=== PATIENT | female | born 1955 | race American Indian/Alaskan Native ===

== ENCOUNTER 2020-02-02 09:37 | Emergency (ER) | payer OTHER ==
[2020-02-02] MEDS ORDERED: ASPIRIN 325 MG TAB PO ONE (09:58)
[2020-02-02 10:22] LABS: Basophils # (Auto) 0.2 K/mm3 (0.0-0.1); Basophils % (Auto) 2.4 % (0.0-1.8); Eosinophils # (Auto) 0.2 K/mm3 (0.0-0.4); Eosinophils % (Auto) 2.1 % (0.0-4.3); Hematocrit 36.9 % (30.3-42.9); Hemoglobin 12.3 gm/dl (10.1-14.3); Lymphocytes # (Auto) 1.7 K/mm3 (1.2-5.4); Lymphocytes % (Auto) 22.4 % (13.4-35.0); Mean Corpuscular HGB Conc 33 % (30-34); Mean Corpuscular Volume 74 fl (79-97); Monocytes # (Auto) 0.7 K/mm3 (0.0-0.8); Monocytes % (Auto) 9.6 % (0.0-7.3); Platelet Count 445 K/mm3 (140-440); Red Blood Count 4.99 M/mm3 (3.65-5.03); Red Cell Distribution Width 16.5 % (13.2-15.2)
[2020-02-02 10:44] LABS: BUN/Creatinine Ratio 16; Blood Urea Nitrogen 13 mg/dL (7-17); Calcium 8.7 mg/dL (8.4-10.2); Hemolysis Index 13
[2020-02-02] MEDS ORDERED: amLODIPine 5 MG TAB PO ONE (10:46)
[2020-02-02] MEDS ORDERED: LISINOPRIL 10 MG TAB PO ONE (10:50)
[2020-02-02] MEDS ORDERED: hydroCHLOROthiazide 25 MG TAB PO ONE (10:50)
--- NOTE | 2020-02-02 10:54 | Emergency Department Report ---
ED General Adult HPI - General Chief complaint: Chest Pain Stated complaint: CHEST PAIN, BP HIGH Time Seen by Provider: 02/02/20 10:41 Source: patient Mode of arrival: Ambulatory Limitations: No Limitations - History of Present Illness Initial comments: CC: " My blood pressure has been so high since I got here." HPI: This is a 64-year-old female history of hypertension who recently moved from [place] over the past weekend. She is concerned that her blood pressure has been elevated. She has been taking her readings every hour. Normal range 120-150 systolic. Today 180s 190s. She has been eating out. She has a high salt diet. She was recently evaluated by new primary care physician just prior to her move from [place]. She was prescribed amlodipine 5 mg once a day. She denies chest pain headache tingling blurry vision. She denies paresthesia or paralysis. She had intermittent nondescript chest pain which is not a concern to her. She desires for evaluation of PET scan results. PET scan was ordered to evaluate lung nodule. -: Gradual, days(s) (2) Consistency: now resolved Improves with: none Worsens with: none Associated Symptoms: denies other symptoms - Related Data Previous Rx's Medication Instructions Recorded Last Taken Type amLODIPine 5 mg PO DAILY 90 Days #90 tab 02/02/20 Unknown Rx hydroCHLOROthiazide [HCTZ] 25 mg PO QDAY 90 Days #90 tablet 02/02/20 Unknown Rx Allergies Allergy/AdvReac Type Severity Reaction Status Date / Time No Known Allergies Allergy Verified 02/02/20 09:58 ED Review of Systems ROS: Stated complaint: CHEST PAIN, BP HIGH Other details as noted in HPI Comment: All other systems reviewed and negative Constitutional: denies: fever, malaise Respiratory: denies: cough, shortness of breath Cardiovascular: chest pain ED Past Medical Hx - Past Medical History Previous Medical History?: Yes Hx Hypertension: Yes - Social History Smoking Status: Never Smoker Substance Use Type: None - Medications Home Medications: Home Medications Medication Instructions Recorded Confirmed Last Taken Type amLODIPine 5 mg PO DAILY 90 Days #90 tab 02/02/20 Unknown Rx hydroCHLOROthiazide [HCTZ] 25 mg PO QDAY 90 Days #90 tablet 02/02/20 Unknown Rx ED Physical Exam - General Limitations: No Limitations General appearance: alert, in no apparent distress - Head Head exam: Present: atraumatic, normocephalic - Eye Eye exam: Present: normal appearance - ENT ENT exam: Present: mucous membranes moist - Neck Neck exam: Present: normal inspection - Respiratory Respiratory exam: Present: normal lung sounds bilaterally. Absent: respiratory distress - Cardiovascular Cardiovascular Exam: Present: regular rate, normal rhythm. Absent: systolic murmur, diastolic murmur, rubs, gallop - GI/Abdominal GI/Abdominal exam: Present: soft, normal bowel sounds - Extremities Exam Extremities exam: Present: normal inspection - Back Exam Back exam: Present: normal inspection - Neurological Exam Neurological exam: Present: alert, oriented X3 - Psychiatric Psychiatric exam: Present: normal affect, normal mood - Skin Skin exam: Present: warm, dry, intact, normal color. Absent: rash ED Course Vital Signs 02/02/20 09:48 Temperature 97.9 F Pulse Rate 65 Respiratory 16 Rate Blood Pressure 191/63 O2 Sat by Pulse 98 Oximetry ED Medical Decision Making - Lab Data Result diagrams: 02/02/20 10:03 02/02/20 10:03 Laboratory Results - last 24 hr 02/02/20 02/02/20 10:03 10:03 WBC 7.5 RBC 4.99 Hgb 12.3 Hct 36.9 MCV 74 L MCH 25 L MCHC 33 RDW 16.5 H Plt Count 445 H Lymph % (Auto) 22.4 Kay % (Auto) 9.6 H Eos % (Auto) 2.1 Baso % (Auto) 2.4 H Lymph # 1.7 Kay # 0.7 Eos # 0.2 Baso # 0.2 H Seg Neutrophils % 63.5 Seg Neutrophils # 4.8 Sodium 142 Potassium 4.0 Chloride 106.8 Carbon Dioxide 20 L Anion Gap 19 BUN 13 Creatinine 0.8 Estimated GFR > 60 BUN/Creatinine Ratio 16 Glucose 95 Calcium 8.7 Troponin T < 0.010 - EKG Data EKG shows normal: sinus rhythm, axis, intervals, QRS complexes, ST-T waves Rate: bradycardia - EKG Data Interpretation: LVH 02/02/20 10:49 EKG obtained 0959 Sinus bradycardia rate 45 bpm normal axis normal intervals no ST-T signs of ischemia positive LVH - Radiology Data Radiology results: report reviewed, image reviewed Chest radiograph: No acute findings - Medical Decision Making 1. Hypertensive urgency without evidence of endorgan damage: Prescribed amlodipine and hydrochlorothiazide referred to outpatient physician repeat blood pressure 149/86 without treatment. Her wrist cuff did not correspond to this finding. She now understands of the risk of is highly inaccurate. 2. Patient has several primary care concerns. PET scan revealed to be negative for metabolic activity. She was given reassurance. Referred to outpatient physician. Critical care attestation.: If time is entered above; I have spent that time in minutes in the direct care of this critically ill patient, excluding procedure time. ED Disposition Clinical Impression: Hypertensive urgency Disposition: DC-01 TO HOME OR SELFCARE Is pt being admited?: No Does the pt Need Aspirin: No Condition: Stable Instructions: Hypertension (ED) Prescriptions: amLODIPine 5 mg PO DAILY 90 Days #90 tab hydroCHLOROthiazide [HCTZ] 25 mg PO QDAY 90 Days #90 tablet Referrals: ELIANA CAZARES MD [Staff Physician] - 3-5 Days
--- NOTE | 2020-02-02 11:08 | XRay Report ---
CHEST 1 VIEW 02/02/2020 10:02 AM INDICATION / CLINICAL INFORMATION: Chest Pain. COMPARISON: None available. FINDINGS: SUPPORT DEVICES: None. HEART / MEDIASTINUM: No significant abnormality. LUNGS / PLEURA: No significant pulmonary or pleural abnormality. No pneumothorax. ADDITIONAL FINDINGS: No significant additional findings. IMPRESSION: 1. No acute abnormality of the chest. Signer Name: Chalo Butler MD Signed: 02/02/2020 11:04 AM Workstation Name: [id number]
[2020-02-02 11:23] VITALS: BP 145/60
== END 2020-02-02 11:23 | disposition home or self-care (01) ==
LOC: ED 09:37
DX: I16.0 Hypertensive urgency (principal); Z79.899 Other long term (current) drug therapy
CPT/HCPCS: 36415; 71045; 80048; 84484; 85025; 93005

== ENCOUNTER 2020-03-17 09:35 | Outpatient (CLI) | payer OTHER ==
--- NOTE | 2020-03-17 11:23 | Mammography Report ---
DIGITAL SCREENING MAMMOGRAM WITH CAD, 03/17/2020 INDICATION: Routine screening mammography. TECHNIQUE: Digital bilateral 2D mammography was obtained in the craniocaudal and mediolateral obliq ue projections. This examination was interpreted with the benefit of Computer-Aided Detection analysi s. COMPARISON: None available. FINDINGS: Breast Density: There are scattered areas of fibroglandular density. 2 nodular densities of uncertain significance are seen in the middle depth, upper outer quadrant of t he right breast measuring up to 6 mm. On the left, there is an indeterminate nodular density located in the 6:00 position, anterior depth measuring 1.1 x 0.8 cm. Another nodular density is seen in the 3 :00 position of the middle depth of the left breast measuring 0.7 x 0.5 cm. No other significant abno rmality is identified in either breast. IMPRESSION: Indeterminate bilateral nodular densities as above. Correlation with prior mammograms would be helpfu l. If no prior studies are available or if these findings are new, a limited bilateral breast ultraso und would be helpful for further evaluation. Follow up recommendation: Ultrasound Category 0: Incomplete. Needs additional imaging evaluation and/or prior mammograms for comparison. A "normal" or negative report should not discourage follow up or biopsy of a clinically significant f inding. A written summary of these findings will be mailed to the patient. The patient will be entered into a mammography reporting system which will generate a reminder letter for the patient's next appointmen t at the appropriate interval. The [employer] recommends yearly mammograms starting at age 40 and continuing as l linda as a woman is in good health. Breast MRI is recommended for women with an approximate 20-25% or greater lifetime risk of breast cancer, including women with a strong family history of breast or ova renata cancer or who have been treated for Hodgkin's disease. Signer Name: Chalo Butler MD Signed: 03/17/2020 11:18 AM Workstation Name: [id number]
== END 2020-03-17 09:36 | disposition home or self-care (01) ==
LOC: MAMMO 09:35
PROVIDERS: ATTEND Internal Medicine
DX: Z12.31 Encounter for screening mammogram for malignant neoplasm of breast (principal); M10.9 Gout, unspecified; M15.0 Primary generalized (osteo)arthritis; I10 Essential (primary) hypertension; E66.09 Other obesity due to excess calories; Z13.220 Encounter for screening for lipoid disorders; Z13.21 Encounter for screening for nutritional disorder
CPT/HCPCS: 36415; 77067; 84550; 86431

== ENCOUNTER 2020-04-28 13:03 | Outpatient (CLI) | payer OTHER ==
--- NOTE | 2020-04-28 15:03 | Mammography Report ---
Procedure: Ultrasound-guided left breast and axillary lymph node biopsy, Postbiopsy left breast diagnostic mammogram Clinical information/indication: Patient has a subareolar nodule under the left breast and also an en larged left axillary lymph node Comparison: Left breast ultrasound from 04/05/2020 and screening exam from 03/17/2020 Procedure: The benefits, indications and risks were discussed with the patient including but not limi stacey to bleeding, infection, hematoma formation, and inadequate tissue sampling. The patient agreed to proceed with both verbal and written consent. A timeout procedure was performed using 2 patient iden tifiers. The breast was prepped and draped in the usual sterile fashion. Lidocaine with and without epinephrin e were used for local anesthesia. Under direct ultrasound guidance, multiple core samples were obtain ed of the left subareolar nodule. A biopsy marker was then placed. Biopsy device was removed and hemo stasis achieved with manual pressure. A sterile dressing was applied to the skin. Ultrasound guidance was then used to obtain 2 core biopsy samples from a left axillary lymph node whi ch demonstrated mild eccentric cortical thickening. A postbiopsy clip was placed, biopsy device remov ed, and hemostasis achieved with manual pressure. A sterile dressing was applied to this region of th e skin as well. The patient tolerated the procedures without difficulty. No complications were encountered. Specimens were sent to pathology. The patient was then sent for a limited mammogram to confirm clip placement . IMPRESSION: 1. Technically successful left breast subareolar and axillary biopsies. 2. Post-procedure mammogram demonstrates satisfactory clip placement in the subareolar nodule of the left breast. The left axillary lymph node clip was not well seen on this exam but was well seen under direct ultrasound visualization. An addendum will be issued once pathology returns on this procedure. Signer Name: Mayito Mercado MD Signed: 04/28/2020 2:58 PM Workstation Name: [id number]
== END 2020-04-28 13:04 | disposition home or self-care (01) ==
LOC: SPVWC 13:03
PROVIDERS: ATTEND Surgery
DX: N63.21 Unspecified lump in the left breast, upper outer quadrant (principal); R59.9 Enlarged lymph nodes, unspecified; R92.8 Other abnormal and inconclusive findings on diagnostic imaging of breast; I10 Essential (primary) hypertension; Z79.899 Other long term (current) drug therapy
CPT/HCPCS: 38505; 76942; 88305

== ENCOUNTER 2020-06-02 09:51 | Outpatient (CLI) | payer OTHER ==
--- NOTE | 2020-06-02 12:08 | Ultrasound Report ---
ULTRASOUND-GUIDED CORE NEEDLE BIOPSY Right BREAST WITH CLIP PLACEMENT INDICATION: Enlarged right axillary lymph node FINDINGS: Informed consent was obtained. The abnormal lymph node in the right axilla was identified with ultras ound. The overlying skin was cleansed with chloro prep and local anesthesia was obtained with a 1% li docaine solution. Under ultrasound guidance an 18-gauge spring loaded core biopsy needle was advanced to the lesion. A total of 4 core samples were obtained. A U-shaped biopsy marker was placed to yisel the site of the biopsy. Specimen samples were placed in formalin and sent to pathology for analysis. Patient tolerated the procedure well and no immediate complications were identified. A post procedure mammogram was not obtained, however the biopsy marker appears appropriately positioned under ultraso und. IMPRESSION: Technically successful ultrasound guided biopsy of right axillary lymph node with placement of a U-sh aped biopsy marker. An addendum will be added to this report at a later date with the pathology results. Signer Name: Chan Marinelli MD Signed: 06/02/2020 12:04 PM Workstation Name: [id number]
== END 2020-06-02 09:52 | disposition home or self-care (01) ==
LOC: SPVWC 09:51
PROVIDERS: ATTEND Surgery
DX: R59.9 Enlarged lymph nodes, unspecified (principal); I10 Essential (primary) hypertension; Z79.899 Other long term (current) drug therapy
CPT/HCPCS: 38505; 76942; 88305

== ENCOUNTER 2020-08-31 09:45 | Outpatient (CLI) | payer OTHER ==
--- NOTE | 2020-08-31 16:37 | Ultrasound Report ---
ULTRASOUND BREAST BILATERAL COMPLETE, 08/31/2020 CLINICAL INFORMATION / INDICATION: ABNORMAL MAMMOGRAM. Patient presents for short interval follow-up following benign ultrasound-guided biopsy of a left breast nodule as well as bilateral axillary lymph nodes. TECHNIQUE: Complete sonographic evaluation of all 4 quadrants and retroareolar region was performed. COMPARISON: Bilateral breast ultrasound 04/05/2020 FINDINGS: Right breast: There is a stable benign intramammary lymph node in the right breast 10:00 position loc ated 6 cm from the nipple measuring up to 4 mm. The previously seen right axillary lymph nodes appear decreased from prior examination, the larger in the 11:00 position located 8 cm from the nipple curr ently measuring up to 1.6 x 0.4 x 0.5 cm, previously 2.2 x 1.4 x 2.1 cm. Left breast: There is a stable oval circumscribed hypoechoic mass in the 3:00 subareolar position, cu rrently measuring up to 1.1 x 0.4 x 1.0 cm, previously 1.0 x 0.4 x 0.9 cm. There is a 5 mm benign int ramammary lymph node in the left breast 3:00 position located 4 cm from the nipple. There are several mildly prominent left axillary lymph nodes which overall appear decreased from prior examination, th e largest in the 2:00 position 16 cm from the nipple currently measuring up to 8mm long axis with cor tical thickness of 3 mm, previously 1.8 cm long axis with cortical thickness of 7 mm. IMPRESSION: 1. An oval circumscribed mass in the 3:00 subareolar left breast is stable from prior, with prior yony ign biopsy of this nodule. 2. Bilateral axillary lymph nodes are decreased compared with prior examination. Follow up recommendation: Back to schedule. BI-RADS Category 2: Benign. A normal or "negative" report should not preclude biopsy or follow-up of a clinically suspicious find ing. Signer Name: Belal Page MD Signed: 08/31/2020 4:33 PM Workstation Name: [id number]
== END 2020-08-31 09:46 | disposition home or self-care (01) ==
LOC: SPVWC 09:45
PROVIDERS: ATTEND Surgery
DX: N63.21 Unspecified lump in the left breast, upper outer quadrant (principal); R59.0 Localized enlarged lymph nodes; R92.8 Other abnormal and inconclusive findings on diagnostic imaging of breast

== ENCOUNTER 2020-11-09 13:31 | Outpatient (CLI) | payer OTHER ==
--- NOTE | 2020-11-09 14:31 | Mammography Report ---
DIGITAL DIAGNOSTIC MAMMOGRAM CONVENTIONAL, 11/09/2020 CLINICAL INFORMATION / INDICATION: Patient presents for six-month follow-up following benign left khurram ast ultrasound-guided biopsy. ABNORMAL MAMMO R92.8 TECHNIQUE: Digital left mammographic imaging was performed. COMPARISON: Prior mammogram 03/17/2020 FINDINGS: Breast Density: There are scattered areas of fibroglandular density. No dominant mass, suspicious calcifications or architectural distortion in the left breast. There is a stable nodular density now with associated biopsy clip in the anterior subareolar left khurram ast at site of prior benign ultrasound-guided biopsy. The additional previously described small nodul e in the 3:00 left breast, middle depth, is unchanged and compatible with a benign intramammary lymph node. There has been interval normalization in appearance of left axillary lymph nodes. IMPRESSION: 1. No suspicious mammographic abnormality identified in the left breast. Follow up recommendation: Back to schedule. BI-RADS Category 2: Benign. A "normal" or negative report should not discourage follow up or biopsy of a clinically significant f inding. A written summary of these findings will be mailed to the patient. The patient will be entered into a mammography reporting system which will generate a reminder letter for the patient's next appointmen t at the appropriate interval. According to the [employer], yearly mammograms are recommended starting at age 40 and continuing as long as a woman is in good health. Breast MRI is recommended for women with an corbin roximately 20-25% or greater lifetime risk of breast cancer, including women with a strong family his tory of breast or ovarian cancer and women who have been treated for Hodgkin's disease. Signer Name: Bella Page MD Signed: 11/09/2020 2:26 PM Workstation Name: [email or web address] [id number]
== END 2020-11-09 13:32 | disposition home or self-care (01) ==
LOC: SPVWC 13:31
PROVIDERS: ATTEND Surgery
DX: R92.8 Other abnormal and inconclusive findings on diagnostic imaging of breast (principal)

== ENCOUNTER 2021-03-18 08:14 | Outpatient (CLI) | payer OTHER ==
--- NOTE | 2021-03-18 13:08 | Mammography Report ---
DIGITAL SCREENING MAMMOGRAM WITH CAD, 03/18/2021 CLINICAL INFORMATION / INDICATION: Routine screening mammography. SCREENING MAMMO TECHNIQUE: Digital bilateral 2D mammography was obtained in the craniocaudal and mediolateral obliqu e projections. This examination was interpreted with the benefit of Computer-Aided Detection analysis . COMPARISON: 03/17/2020 FINDINGS: Breast Density: There are scattered areas of fibroglandular density. No dominant mass, suspicious calcifications, or architectural distortion in either breast. Stable bilateral breast nodules with interval biopsy change of the left. IMPRESSION: No mammographic evidence of malignancy. Follow up recommendation: Routine yearly BI-RADS Category 2: Benign. A "normal" or negative report should not discourage follow up or biopsy of a clinically significant f inding. A written summary of these findings will be mailed to the patient. The patient will be entered into a mammography reporting system which will generate a reminder letter for the patient's next appointmen t at the appropriate interval. The [employer] recommends yearly mammograms starting at age 40 and continuing as l linda as a woman is in good health. Breast MRI is recommended for women with an approximate 20-25% or greater lifetime risk of breast cancer, including women with a strong family history of breast or ova renata cancer or who have been treated for Hodgkin's disease. Signer Name: Mayito Mercado MD Signed: 03/18/2021 1:03 PM Workstation Name: [id number]
== END 2021-03-18 08:15 | disposition home or self-care (01) ==
LOC: SPVWC 08:14
PROVIDERS: ATTEND Surgery
DX: Z12.31 Encounter for screening mammogram for malignant neoplasm of breast (principal); N64.89 Other specified disorders of breast; N63.20 Unspecified lump in the left breast, unspecified quadrant
CPT/HCPCS: 77067